=== PATIENT | male | born 1960 | race Caucasian/White ===

== ENCOUNTER 2017-09-25 09:07 | Outpatient (CLI) | payer OTHER ==
[~2017-09-25 09:07] MED LIST: Gadobenate Dimeglumine 529 MG/1 ML (20ML VIAL) ONE
--- NOTE | 2017-09-25 14:49 | MRI ---
MR OF THE ABDOMEN WITH AND WITHOUT CONTRAST: Indication: History of malignant neoplasm of the left concern for possible metastatic disease. Comparison: MR of the abdomen with and without contrast dated 12-28-16. CT of the thorax dated 03-29-17. Technique: Multiplanar, multisequence MR images were obtained of the abdomen with and without contras t utilizing 20 cc of MultiHance. FINDINGS: There is a small 8 mm T2 hyperintense, T1 hypointense enhancing lesion within segment 7 of the right hepatic lobe that demonstrates progressive fill in on the delayed phase images, most consistent with a tiny hemangioma. This is stable to the prior exam. There are small cystic lesions involving both th e kidneys and the pancreas. There is a mildly proteinaceous cyst involving the right mid kidney poste riorly measuring 1.4 cm. No definite solid renal lesion is evident. No free fluid or enlarged lymph n odes are noted. The adrenal glands and spleen appear within normal limits. No enlarged lymph nodes ar e noted. No definite marrow signal abnormality is evident. IMPRESSION: 1. No evidence of metastatic disease within the abdomen. 2. Stable right hepatic lobe hemangioma. 3. Stable pancreatic and renal cysts. POS: [facility]
== END 2017-09-25 09:08 | disposition home or self-care (01) ==
LOC: SCSMRI 09:07
PROVIDERS: ATTEND Internal Medicine Hematology & Oncology
DX: C69.32 Malignant neoplasm of left choroid (principal); D18.03 Hemangioma of intra-abdominal structures; K86.2 Cyst of pancreas; N28.1 Cyst of kidney, acquired
CPT/HCPCS: 74183; A9579

== ENCOUNTER 2018-04-27 14:38 | Emergency (ER) | payer OTHER ==
--- NOTE | 2018-04-27 18:15 | MRI ---
BRAIN MRI WITH AND WITHOUT CONTRAST: 04/27/18 INDICATION: Headache with near syncope. FINDINGS: Ventricular system is normal in size. There is no shift of midline. Multifocal small signal abnormali ties of the bilateral cerebral hemispheres are present. There is no acute territorial infarction, int racranial mass effect or midline shift. There is no enhancing intra-axial mass. Susceptibility artifa ct from patient's right facial region limits evaluation. There is scattered mucosal thickening as wel l as retention cyst formation of the paranasal sinuses. IMPRESSION: 1. No acute territorial infarction or mass effect. 2. Findings most consistent with mild chronic ischemic disease. POS: [facility]
== END 2018-04-27 16:56 | disposition home or self-care (01) ==
LOC: SCSER 14:38
DX: R51 Headache (principal); I10 Essential (primary) hypertension; G47.30 Sleep apnea, unspecified; E78.5 Hyperlipidemia, unspecified; Z79.899 Other long term (current) drug therapy
CPT/HCPCS: 36415; 70553; 80053; 80061; 81001; 84443; 85025; A9579; G0103

== ENCOUNTER 2018-05-16 11:34 | Outpatient (CLI) | payer OTHER ==
--- NOTE | 2018-05-16 16:30 | MRI ---
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 COMPARISON: MRI 09/25/17 and 12/28/16. FINDINGS: Within the pancreatic head is a 4 mm T2 hyperintense focus without main pancreatic duct communication which is unchanged in appearance. No focal enhancement. 3 mm T2 hyperintense focus is present in the pancreatic tail, coronal series 2, image 30. Another T2 hyperintense focus also present in the dista l tail measuring 4 mm. These are all unchanged. No abnormal enhancing pancreatic mass. There is a nonenhancing likely hemorrhagic cyst posterior elle ex interpolar right kidney. Hemangiomas noted in the right lobe of the liver. No abnormal enhancing mass in the liver. Multiple bilateral renal small cysts. Marrow signal is unremarkable. Spleen is normal. No retroperitoneal adenopathy. IMPRESSION: 1. No evidence of metastatic disease. 2. Hepatic hemangioma. 3. Multiple sub 5 mm T2 hyperintense foci within the pancreas without the main duct communicatio n suggesting IPMNs. Per the ACR white paper, continued followup yearly is recommended. POS: [facility]
== END 2018-05-16 11:35 | disposition home or self-care (01) ==
LOC: MRI 11:34 → SCSMRI 11:35
PROVIDERS: ATTEND Internal Medicine Hematology & Oncology
DX: C69.30 Malignant neoplasm of unspecified choroid (principal); D18.09 Hemangioma of other sites; K86.89 Other specified diseases of pancreas
CPT/HCPCS: 74183; A9579

== ENCOUNTER 2018-11-09 08:00 | Outpatient (CLI) | payer OTHER ==
--- NOTE | 2018-11-09 12:32 | MRI ---
MRI ABDOMEN WITH AND WITHOUT CONTRAST: HISTORY: Malignant neoplasm of the choroid. COMPARISON: 05/16/2018 09/25/2017 TECHNIQUE: Multiplanar, multisequence MR images were obtained of the abdomen with and without IV contrast. FINDINGS: There is a stable, 7 to 8 mm lesion in the far aspect of the right lobe of the liver. This demon[place] high T2 signal. This has gradual fill-in on post contrast imaging and is consistent with a heman gioma. No other liver lesions are seen. There are enumerable foci of high T2 signal in the bilateral kidneys, measuring up to 7 mm in size, w hich represent cysts. There are tiny foci of high T2 signal in the tail of the pancreas, measuring u p to 4 mm in size, which represent cysts. The gallbladder, adrenal glands, and spleen are unremarkable. No abdominal or pelvic lymphadenopathy is seen. No marrow signal abnormality is present. IMPRESSION: 1. Stable small hepatic hemangioma. 2. Stable renal and pancreatic cysts. 3. No evidence of intraabdominal metastatic disease. POS: [facility]
== END 2018-11-09 08:01 | disposition home or self-care (01) ==
LOC: SCSMRI 08:00
PROVIDERS: ATTEND Internal Medicine Hematology & Oncology
DX: C69.32 Malignant neoplasm of left choroid (principal); N28.1 Cyst of kidney, acquired; K86.2 Cyst of pancreas; D18.03 Hemangioma of intra-abdominal structures
CPT/HCPCS: 74183

== ENCOUNTER 2019-05-02 07:53 | Outpatient (CLI) | payer OTHER ==
--- NOTE | 2019-05-02 12:17 | MRI ---
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 COMPARISON: 11/09/2018, 05/16/2018, and 09/25/2017. FINDINGS: The 7-8 mm lesion in the lateral aspect of the right lobe of the liver is stable with high T2 signal and gradual fill-in on the postcontrast imaging, consistent with hemangioma. No new hepatic lesions are seen. The tiny nonenhancing cysts in the pancreas are stable. Bilateral renal cysts are again seen including the proteinaceous cyst in the posterior cortex of the right kidney. The spleen, gallbladder, and adrenal glands appear normal. No free fluid or lymphadenopathy is noted . There is no evidence of aneurysmal dilatation of the abdominal aorta. The bone marrow signal is n ormal. IMPRESSION: Stable exam. POS: [facility]
== END 2019-05-02 07:54 | disposition home or self-care (01) ==
LOC: SCSMRI 07:53
PROVIDERS: ATTEND Internal Medicine Hematology & Oncology
DX: C69.32 Malignant neoplasm of left choroid (principal)
CPT/HCPCS: 74183

== ENCOUNTER 2020-01-10 08:43 | Outpatient (CLI) | payer OTHER ==
--- NOTE | 2020-01-10 10:55 | MRI ---
MRI OF THE ABDOMEN WITHOUT AND WITH CONTRAST: COMPARISON: 05/02/2019. HISTORY: High risk uveal melanoma. TECHNIQUE: Multiplanar, multisequence MR images were obtained of the abdomen without and with IV contrast. FINDINGS: There is a new multilobulated heterogeneous mass involving the anterior aspect of the central liver. This mass measures approximately 8.4 x 10.4 x 11.6 cm in size. This mass demonstrates high T2 signa l. There are also other subtle foci of high T2 signal in the far left lobe of the liver and 1 focus in the right lobe of the liver that are subcentimeter in size. Evaluation for enhancement of these l esions is difficult as these are subcentimeter in size, but these lesions are also new and concerning for additional hepatic lesions. No biliary dilatation is seen. There is a stable 7 mm peripheral f ocus of high T2 signal in the right lobe of the liver demonstrating fill-in consistent with a small h emangioma. There are multiple cysts in both kidneys. Some of these demonstrate high T1 signal before contrast c onsistent with hemorrhagic cysts. These are stable compared to the prior exam. There are multiple s mall subcentimeter pancreatic cysts. The adrenal gland and spleen are unremarkable. No abdominal adenopathy is seen. No marrow signal ab normality is seen. IMPRESSION: 1. Interval development of hepatic metastatic disease in both lobes of the liver with the largest le alvarado seen in the central liver. 2. Stable renal cysts. 3. Stable pancreatic cysts. 4. Stable right hepatic hemangioma. POS: [facility]
== END 2020-01-10 08:44 | disposition home or self-care (01) ==
LOC: SCSMRI 08:43
PROVIDERS: ATTEND Internal Medicine Hematology & Oncology
DX: C69.32 Malignant neoplasm of left choroid (principal); C78.7 Secondary malignant neoplasm of liver and intrahepatic bile duct; N28.1 Cyst of kidney, acquired; K86.2 Cyst of pancreas; D18.03 Hemangioma of intra-abdominal structures
CPT/HCPCS: 74183

== ENCOUNTER 2020-01-15 13:23 | Outpatient (CLI) | payer OTHER ==
--- NOTE | 2020-01-15 14:26 | MRI ---
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 FINDINGS: There is no obstructive hydrocephalus. There is no midline shift or any other evidence of mass effect . There is no extra-axial fluid collection. There are mild chronic ischemic white matter changes due to microvascular atherosclerosis. There is otherwise no major intra-axial signal abnormality, abn ormal enhancement, mass, recent hemorrhage, or restricted diffusion. Bilateral globes have normal shape and signal, with no abnormal enhancement. There is no interval change overall. IMPRESSION: 1) mild chronic ischemic white matter changes. 2) otherwise negative
== END 2020-01-15 13:24 | disposition home or self-care (01) ==
LOC: MRI 13:23
PROVIDERS: ATTEND Internal Medicine Hematology & Oncology
DX: C69.32 Malignant neoplasm of left choroid (principal); C78.7 Secondary malignant neoplasm of liver and intrahepatic bile duct; R51 Headache; H53.8 Other visual disturbances
CPT/HCPCS: 70553